=== PATIENT | female | born 1950 | race African-American/Black ===

== ENCOUNTER 2016-08-06 10:31 | Emergency (ER) | payer OTHER, MEDICAID ==
[~2016-08-06] VITALS: Ht 162.6 cm; Wt 71.2 kg
[~2016-08-06 10:31] MED LIST: ALBU1AER4 IN; ALBUAER3 IN; AMLO5TAB2 PO; FEXO-39 PO; HYDR25TA4 PO; LEVO-28 PO; METF-312 PO
[2016-08-06 10:40] VITALS: BP 135/66
[2016-08-06] MEDS ORDERED: KETOROLAC TROMETH 30 MG/ML 1ML VIAL IM ONE (11:15)
== END 2016-08-06 11:27 | disposition home or self-care (01) ==
LOC: ER 10:31
DX: M19.032 Primary osteoarthritis, left wrist (principal); M19.031 Primary osteoarthritis, right wrist; J45.909 Unspecified asthma, uncomplicated; J44.9 Chronic obstructive pulmonary disease, unspecified; E11.9 Type 2 diabetes mellitus without complications; I10 Essential (primary) hypertension; Z98.51 Tubal ligation status; Z90.710 Acquired absence of both cervix and uterus
CPT/HCPCS: 96372; 99283; J1885

== ENCOUNTER 2016-09-26 11:23 | Inpatient (IN) | payer OTHER, MEDICAID ==
[~2016-09-26] VITALS: Ht 162.6 cm; Wt 75.3 kg
[2016-09-26] MEDS: SODIUM CHLORIDE 0.9% 1,000 ML IV SCH (00:15)
[~2016-09-26 11:23] MED LIST changes: -LEVO-28 PO
[2016-09-26 12:03] LABS: Basophils # (auto) 0 uL; Basophils % (auto) 0.1 % (0.0-2.0); Eosinophils # (auto) 0 uL; Eosinophils % (auto) 0.4 % (0.0-7.0); Hemoglobin 16.4 g/dL (12.2-16.2); Lymphocytes # (auto) 1.2 uL; Lymphocytes % (auto) 13.1 % (10.0-50.0); Mean Corpuscular Hemoglobin 30.5 pg (28.0-32.0); Mean Corpuscular Hgb Conc. 32.2 g/dL (32.0-36.0); Mean Corpuscular Volume 94.5 fL (80.0-100.0); Mean Platelet Volume 8.5 fL (7.4-10.4); Monocytes # (auto) 0.2 uL; Monocytes % (auto) 2.1 % (0.0-12.0); Neutrophils # (auto) 7.6 uL; Neutrophils % (auto) 84.3 % (37.0-80.0); Platelet Count (auto) 247 10^3/uL (140-450); Red Cell Distribution Width 18.2 % (11.6-16.0)
[2016-09-26] MEDS ORDERED: IPRATROPIUM BROM 0.5 MG/2.5ML INH SOL NEB ONE ×2 (12:15→22:30)
[2016-09-26] MEDS ORDERED: ALBUTEROL SULF 2.5 MG/0.5ML(0.5%) NEB SOLN NEB ONE ×2 (12:15→22:30)
[2016-09-26 12:17] LABS: Albumin 3.3 g/dL (3.4-5.0); Alkaline Phosphatase 86 U/L (45-117); Anion Gap 6 (5-15); Aspartate Aminotransferase 8 U/L (15-37); BUN/Creatinine Ratio 14.3; Bilirubin, Total 0.8 mg/dL (0.2-1.0); Blood Urea Nitrogen 12 mg/dL (7-18); Calcium 8.6 mg/dL (8.5-10.1); Carbon Dioxide 29 mmol/L (21-32); Chloride 106 mmol/L (98-107); GFR African American 87 mL/min; GFR Non-African American 72 mL/min; Glucose 109 mg/dL (74-106); Magnesium 2.5 mg/dL (1.6-2.6); Sodium 141 mmol/L (136-145); Total Protein 7.1 g/dL (6.4-8.2)
[2016-09-26] MEDS ORDERED: methylPREDNISolone SOD SUCC 125 MG/2 ML VL IV ONE (12:30)
[2016-09-26] MEDS ORDERED: cefTRIAXone 1GM/50ML D5W 50 ML IV ONE (12:30)
[2016-09-26 13:31] LABS: B-Type Natriuretic Peptide 187.7 pg/mL (0-100); Temperature: 23.5 C (20.0-25.0)
[2016-09-26] MEDS ORDERED: IOHEXOL 350 MG/ML 100ML IJ ONE (14:25)
[2016-09-26] MEDS ORDERED: ENOXAPARIN SOD 80 MG/0.8ML SYRINGE SC ONE (14:30)
[2016-09-26 15:30] LABS: Urine Bilirubin Negative (Negative); Urine Blood Negative /uL (Negative); Urine Color Yellow (Yellow); Urine Glucose Normal (Normal); Urine Hyaline Cast FEW /lpf (0 - 2); Urine Ketone Negative (Negative); Urine Mucus FEW (None Seen); Urine Nitrite Negative (Negative); Urine RBC 13 /hpf (0 - 4); Urine Squamous Epithelial Cell FEW /hpf (<5)
[2016-09-26] MEDS ORDERED: ONDANSETRON HCL 4 MG/2 ML VIAL IV PRN (23:00)
[2016-09-26] MEDS ORDERED: DOCUSATE SOD 100 MG CAP PO PRN (23:00)
[2016-09-26] MEDS ORDERED: ACETAMINOPHEN 325 MG TAB PO PRN (23:00)
[2016-09-27] VITALS (8 sets, daily range): BP systolic 124–147; BP diastolic 65–99
[2016-09-27] MEDS: HYDROcodone-ACET 5/325MG TAB PO PRN ×2 (00:04→17:00)
[2016-09-27] MEDS: methylPREDNISolone SOD SUCC 40 MG/ML VL IV SCH ×5 (00:05→23:41)
[2016-09-27] MEDS: TEMAZEPAM 15 MG CAP PO PRN ×2 (00:42→21:14)
[2016-09-27] MEDS: IPRATROPIUM BROM 0.5 MG/2.5ML INH SOL NEB SCH ×6 (02:00→22:50)
[2016-09-27] MEDS ORDERED: ALBUTEROL SULF 2.5 MG/0.5ML(0.5%) NEB SOLN NEB ONE (02:00)
[2016-09-27] MEDS: SODIUM CHLOR 0.9% PF (SALINE LOCK) 10ML VIAL IV SCH ×3 (04:46→21:15)
[2016-09-27 06:07] LABS: Basophils # (auto) 0 uL; Eosinophils # (auto) 0 uL; Hematocrit 51.7 % (36.0-46.0); Hemoglobin 16.3 g/dL (12.2-16.2); Lymphocytes # (auto) 0.5 uL; Lymphocytes % (auto) 8.3 % (10.0-50.0); Mean Corpuscular Hemoglobin 30.3 pg (28.0-32.0); Mean Corpuscular Hgb Conc. 31.6 g/dL (32.0-36.0); Mean Platelet Volume 8.6 fL (7.4-10.4); Monocytes # (auto) 0.1 uL; Monocytes % (auto) 1.3 % (0.0-12.0); Neutrophils # (auto) 5.1 uL; Neutrophils % (auto) 90.4 % (37.0-80.0); Platelet Count (auto) 247 10^3/uL (140-450); Red Cell Distribution Width 17.5 % (11.6-16.0); SUSPECT VIEW TRANSMISSION; White Blood Cell 5.7 10^3/uL (4.4-10.8)
[2016-09-27 06:39] LABS: Albumin 3.2 g/dL (3.4-5.0); BUN/Creatinine Ratio 15.4; Bilirubin, Total 0.7 mg/dL (0.2-1.0); Calcium 8.9 mg/dL (8.5-10.1); Potassium 4.5 mmol/L (3.5-5.1); Total Protein 7.1 g/dL (6.4-8.2)
[2016-09-27] MEDS: FAMOTIDINE 20 MG TAB PO SCH ×2 (09:40→21:14)
[2016-09-27] MEDS ORDERED: POTASSIUM CHL 10 Meq TABLET PO ONE (11:30)
[2016-09-27] MEDS ORDERED: cefTRIAXone 1GM/50ML D5W 50 ML IV ONE (11:30)
[2016-09-27] MEDS ORDERED: FUROSEMIDE 40 MG/4 ML VIAL IV ONE (11:30)
[2016-09-27] MEDS ORDERED: amLODIPine BESYLATE 5 MG TAB PO ONE (11:45)
[2016-09-27] MEDS ORDERED: HCTZ 25 MG TAB PO ONE (11:45)
[2016-09-27] MEDS ORDERED: FEXOFENADINE HCL 60 MG TAB PO ONE (11:45)
[2016-09-27] MEDS: Boost Glucose Control 8 Ounces PO SCH ×2 (12:16→20:37)
[2016-09-27] MEDS: ALBUTEROL SULF 2.5 MG/0.5ML(0.5%) NEB SOLN NEB SCH ×3 (15:00→22:50)
[2016-09-27] MEDS: SODIUM CHLORIDE 0.9% 1,000 ML IV SCH (15:40)
[2016-09-27] MEDS: FEXOFENADINE HCL 60 MG TAB PO SCH (21:14)
[2016-09-28] MEDS: IPRATROPIUM BROM 0.5 MG/2.5ML INH SOL NEB SCH ×6 (02:12→22:04)
[2016-09-28] MEDS: ALBUTEROL SULF 2.5 MG/0.5ML(0.5%) NEB SOLN NEB SCH ×6 (02:12→22:04)
[2016-09-28] MEDS: HYDROcodone-ACET 5/325MG TAB PO PRN (04:03)
[2016-09-28] MEDS: methylPREDNISolone SOD SUCC 40 MG/ML VL IV SCH ×3 (05:07→18:05)
[2016-09-28] MEDS: SODIUM CHLOR 0.9% PF (SALINE LOCK) 10ML VIAL IV SCH ×3 (05:08→21:26)
[2016-09-28 05:30] LABS: Basophils # (auto) 0 uL; Eosinophils # (auto) 0 uL; Eosinophils % (auto) 0.1 % (0.0-7.0); Hematocrit 50.4 % (36.0-46.0); Lymphocytes # (auto) 0.4 uL; Lymphocytes % (auto) 5.4 % (10.0-50.0); Mean Corpuscular Hemoglobin 30.4 pg (28.0-32.0); Mean Corpuscular Hgb Conc. 31.8 g/dL (32.0-36.0); Mean Corpuscular Volume 95.5 fL (80.0-100.0); Mean Platelet Volume 8.4 fL (7.4-10.4); Monocytes # (auto) 0.4 uL; Neutrophils # (auto) 6.4 uL; Neutrophils % (auto) 88.5 % (37.0-80.0); Platelet Count (auto) 257 10^3/uL (140-450); Red Cell Distribution Width 17.2 % (11.6-16.0); White Blood Cell 7.2 10^3/uL (4.4-10.8)
[2016-09-28 05:41] LABS: Albumin 3.2 g/dL (3.4-5.0); Calcium 8.8 mg/dL (8.5-10.1); Potassium 4.7 mmol/L (3.5-5.1)
[2016-09-28 05:42] VITALS: BP 121/74
[2016-09-28 05:44] LABS: BUN/Creatinine Ratio 20.4
[2016-09-28 05:47] LABS: Bilirubin, Total 0.5 mg/dL (0.2-1.0); Total Protein 6.4 g/dL (6.4-8.2)
[2016-09-28] MEDS: Boost Glucose Control 8 Ounces PO SCH ×3 (08:00→18:07)
[2016-09-28] MEDS: SODIUM CHLORIDE 0.9% 1,000 ML IV SCH (08:20)
[2016-09-28 09:23] VITALS: BP 147/76
[2016-09-28] MEDS: cefTRIAXone 1GM/50ML D5W 50 ML IV SCH (09:48)
[2016-09-28] MEDS: FUROSEMIDE 40 MG/4 ML VIAL IV SCH (09:49)
[2016-09-28] MEDS: POTASSIUM CHL 10 Meq TABLET PO SCH (09:50)
[2016-09-28] MEDS: FAMOTIDINE 20 MG TAB PO SCH ×2 (09:50→21:26)
[2016-09-28] MEDS: HCTZ 25 MG TAB PO SCH (09:50)
[2016-09-28] MEDS: FEXOFENADINE HCL 60 MG TAB PO SCH ×2 (09:51→21:26)
[2016-09-28] MEDS: amLODIPine BESYLATE 5 MG TAB PO SCH (09:51)
[2016-09-28 12:50] VITALS: BP 161/73
[2016-09-28 17:37] VITALS: BP 137/75
[2016-09-28] MEDS: PROMETHAZINE-DM 5 ML ORAL SYRUP GT PRN (18:06)
[2016-09-28] MEDS: TEMAZEPAM 15 MG CAP PO PRN (21:26)
[2016-09-28 22:00] VITALS: BP 134/70
[2016-09-29] MEDS: methylPREDNISolone SOD SUCC 40 MG/ML VL IV SCH ×5 (00:16→23:41)
[2016-09-29] MEDS: SODIUM CHLORIDE 0.9% 1,000 ML IV SCH ×2 (00:55→17:40)
[2016-09-29] MEDS: ALBUTEROL SULF 2.5 MG/0.5ML(0.5%) NEB SOLN NEB SCH ×6 (02:38→22:41)
[2016-09-29] MEDS: IPRATROPIUM BROM 0.5 MG/2.5ML INH SOL NEB SCH ×6 (02:38→22:41)
[2016-09-29] MEDS: SODIUM CHLOR 0.9% PF (SALINE LOCK) 10ML VIAL IV SCH ×3 (05:04→22:00)
[2016-09-29 05:30] VITALS: BP 134/84
[2016-09-29 06:48] LABS: Basophils # (auto) 0 uL; Basophils % (auto) 0.1 % (0.0-2.0); DEFINITIVE VIEW TRANSMISSION; Eosinophils # (auto) 0 uL; Hematocrit 54.5 % (36.0-46.0); Hemoglobin 17.2 g/dL (12.2-16.2); Lymphocytes # (auto) 0.5 uL; Lymphocytes % (auto) 5.3 % (10.0-50.0); Mean Corpuscular Hemoglobin 30.1 pg (28.0-32.0); Mean Corpuscular Hgb Conc. 31.5 g/dL (32.0-36.0); Mean Corpuscular Volume 95.6 fL (80.0-100.0); Mean Platelet Volume 8.6 fL (7.4-10.4); Monocytes # (auto) 0.5 uL; Monocytes % (auto) 4.7 % (0.0-12.0); Neutrophils # (auto) 9.3 uL; Neutrophils % (auto) 89.9 % (37.0-80.0); Platelet Count (auto) 268 10^3/uL (140-450); Red Cell Distribution Width 17.3 % (11.6-16.0); SUSPECT VIEW TRANSMISSION; White Blood Cell 10.3 10^3/uL (4.4-10.8)
[2016-09-29 07:10] LABS: Potassium 4.3 mmol/L (3.5-5.1)
[2016-09-29 07:13] LABS: Albumin 3.5 g/dL (3.4-5.0); BUN/Creatinine Ratio 25.3; Calcium 9.3 mg/dL (8.5-10.1)
[2016-09-29 07:17] LABS: Bilirubin, Total 0.7 mg/dL (0.2-1.0); Total Protein 6.9 g/dL (6.4-8.2)
[2016-09-29] MEDS: Boost Glucose Control 8 Ounces PO SCH ×3 (08:08→18:27)
[2016-09-29 09:04] VITALS: BP 133/77
[2016-09-29] MEDS: POTASSIUM CHL 10 Meq TABLET PO SCH (09:49)
[2016-09-29] MEDS: cefTRIAXone 1GM/50ML D5W 50 ML IV SCH (09:49)
[2016-09-29] MEDS: FUROSEMIDE 40 MG/4 ML VIAL IV SCH (09:49)
[2016-09-29] MEDS: FEXOFENADINE HCL 60 MG TAB PO SCH ×2 (09:49→21:12)
[2016-09-29] MEDS: HCTZ 25 MG TAB PO SCH (09:49)
[2016-09-29] MEDS: FAMOTIDINE 20 MG TAB PO SCH ×2 (09:50→21:12)
[2016-09-29] MEDS: amLODIPine BESYLATE 5 MG TAB PO SCH (09:50)
[2016-09-29 12:37] VITALS: BP 147/71
[2016-09-29 16:47] VITALS: BP 120/71
[2016-09-29] MEDS: TEMAZEPAM 15 MG CAP PO PRN (21:12)
[2016-09-29 22:00] VITALS: BP 143/81
[2016-09-30 00:25] VITALS: BP 120/71
[2016-09-30] MEDS: ALBUTEROL SULF 2.5 MG/0.5ML(0.5%) NEB SOLN NEB SCH ×4 (02:22→14:05)
[2016-09-30] MEDS: IPRATROPIUM BROM 0.5 MG/2.5ML INH SOL NEB SCH ×4 (02:22→14:05)
[2016-09-30 05:30] VITALS: BP 140/75
[2016-09-30] MEDS: SODIUM CHLOR 0.9% PF (SALINE LOCK) 10ML VIAL IV SCH ×2 (06:11→14:27)
[2016-09-30] MEDS: methylPREDNISolone SOD SUCC 40 MG/ML VL IV SCH ×2 (06:12→12:00)
[2016-09-30] MEDS: PROMETHAZINE-DM 5 ML ORAL SYRUP GT PRN (06:20)
[2016-09-30 08:00] VITALS: BP 140/75
[2016-09-30 09:00] VITALS: BP 141/75
[2016-09-30] MEDS: Boost Glucose Control 8 Ounces PO SCH ×2 (09:23→12:00)
[2016-09-30] MEDS: cefTRIAXone 1GM/50ML D5W 50 ML IV SCH (09:24)
[2016-09-30] MEDS: FAMOTIDINE 20 MG TAB PO SCH (09:25)
[2016-09-30] MEDS: HCTZ 25 MG TAB PO SCH (09:25)
[2016-09-30] MEDS: amLODIPine BESYLATE 5 MG TAB PO SCH (09:25)
[2016-09-30] MEDS: FEXOFENADINE HCL 60 MG TAB PO SCH (09:26)
[2016-09-30] MEDS: SODIUM CHLORIDE 0.9% 1,000 ML IV SCH (09:29)
[2016-09-30] MEDS: POTASSIUM CHL 10 Meq TABLET PO SCH (09:29)
[2016-09-30] MEDS: FUROSEMIDE 40 MG/4 ML VIAL IV SCH (09:29)
[2016-09-30 11:50] VITALS: BP 141/75
== END 2016-09-30 14:40 | disposition home or self-care (01) | DRG 291 ==
LOC: ER 11:23 → TELE 11:24 → TELE-WESTW 09-27 00:12
PROVIDERS: ADMIT Emergency Medicine; ATTEND Internal Medicine
DX: I50.33 Acute on chronic diastolic (congestive) heart failure (principal); J96.00 Acute respiratory failure, unspecified whether with hypoxia or hypercapnia; J44.1 Chronic obstructive pulmonary disease with (acute) exacerbation; J45.901 Unspecified asthma with (acute) exacerbation; E44.1 Mild protein-calorie malnutrition; J44.0 Chronic obstructive pulmonary disease with (acute) lower respiratory infection; I13.10 Hypertensive heart and chronic kidney disease without heart failure, with stage 1 through stage 4 chronic kidney disease, or unspecified chronic kidney disease; J20.9 Acute bronchitis, unspecified; E11.21 Type 2 diabetes mellitus with diabetic nephropathy; N18.2 Chronic kidney disease, stage 2 (mild)
CPT/HCPCS: 36415; 36600; 71010; 71275; 80053; 81001; 82805; 83036; 83605; 83735; 83880; 84484; 85025; 85379; 87040; 87081; 93005; 93306; 93970; 94640; 96365; 96372; 96375; 99291; J0696

== ENCOUNTER → 2018-09-06 | Outpatient (CLI) | payer OTHER, MEDICAID ==
[~2018-09-06] MED LIST changes: -ALBU1AER4 IN; +AMLO5TAB13 PO; -AMLO5TAB2 PO; -METF-312 PO; +METF-370 PO
== END | disposition home or self-care (01) ==
LOC: Rad HDHVI 07:47
PROVIDERS: ATTEND Internal Medicine Cardiovascular Disease
DX: I08.2 Rheumatic disorders of both aortic and tricuspid valves (principal); I65.21 Occlusion and stenosis of right carotid artery; I42.0 Dilated cardiomyopathy; I27.20 Pulmonary hypertension, unspecified
CPT/HCPCS: 93306; 93880

== ENCOUNTER 2019-06-05 15:07 | Emergency (ER) | payer OTHER, MEDICAID ==
[~2019-06-05] VITALS: Ht 162.6 cm; Wt 59.0 kg
[~2019-06-05 15:07] MED LIST changes: -AMLO5TAB13 PO; +AMLO5TAB15 PO
[2019-06-05 16:08] VITALS: BP 110/76
[2019-06-05] MEDS ORDERED: methylPREDNISolone SOD SUCC 125 MG/2 ML VL IV ONE (16:30)
[2019-06-05] MEDS ORDERED: IPRATROPIUM BROM 0.5 MG/2.5ML INH SOL NEB ONE (16:30)
[2019-06-05] MEDS ORDERED: ALBUTEROL SULF 2.5 MG/0.5ML(0.5%) NEB SOLN NEB ONE (16:30)
[2019-06-05 17:20] LABS: Basophils # (auto) 0.1 uL; Basophils % (auto) 1.5 % (0.0-2.0); Eosinophils # (auto) 0 uL; Eosinophils % (auto) 0.8 % (0.0-7.0); Hematocrit 50.7 % (36.0-46.0); Hemoglobin 16.5 g/dL (12.2-16.2); Lymphocytes # (auto) 1.2 uL; Lymphocytes % (auto) 23.8 % (10.0-50.0); Mean Corpuscular Hemoglobin 29.8 pg (28.0-32.0); Mean Corpuscular Hgb Conc. 32.6 g/dL (32.0-36.0); Mean Corpuscular Volume 91.6 fL (80.0-100.0); Monocytes # (auto) 0.7 uL; Neutrophils # (auto) 3.1 uL; Neutrophils % (auto) 60.9 % (37.0-80.0); Nucleated Red Blood Cells % 0.2 %; Platelet Count (auto) 210 10^3/uL (140-450); Red Blood Cells 5.54 10^6/uL (4.0-5.20); Red Cell Distribution Width 16.3 % (11.8-14.3)
[2019-06-05 17:36] LABS: INR 1.15 (0.9-1.15); Partial Thromboplastin Time 27.1 sec (23.64-32.05)
[2019-06-05 17:38] LABS: Albumin 3.1 g/dL (3.4-5.0); Anion Gap 3 (5-15); BUN/Creatinine Ratio 29.3; Blood Urea Nitrogen 24 mg/dL (7-18); Calcium 8.8 mg/dL (8.5-10.1); Carbon Dioxide 34 mmol/L (21-32); Chloride 102 mmol/L (98-107); GFR African American 88 mL/min; GFR Non-African American 73 mL/min; Glucose 71 mg/dL (74-106); Potassium 3.9 mmol/L (3.5-5.1); Sodium 139 mmol/L (136-145)
[2019-06-05 17:44] LABS: Alanine Aminotransferase 35 U/L (13-56); Alkaline Phosphatase 130 U/L (45-117); Aspartate Aminotransferase 13 U/L (15-37); Bilirubin, Total 1.6 mg/dL (0.2-1.0); Total Protein 6.7 g/dL (6.4-8.2)
[2019-06-05] MEDS ORDERED: FUROSEMIDE 40 MG/4 ML VIAL IV ONE (19:45)
== END 2019-06-06 02:22 | disposition left against medical advice (07) ==
LOC: EDSEX 15:07 → EDBD 15:07 → ER 15:18
DX: R06.03 Acute respiratory distress (principal); I11.0 Hypertensive heart disease with heart failure; I50.9 Heart failure, unspecified; E11.9 Type 2 diabetes mellitus without complications; M19.90 Unspecified osteoarthritis, unspecified site
CPT/HCPCS: 36415; 80053; 83880; 84484; 85025; 85610; 85730; 93005; 94640; 99284; J7611; J7644

== ENCOUNTER 2019-07-16 09:05 | Inpatient (IN) | payer OTHER, MEDICAID ==
[~2019-07-16] VITALS: Ht 162.6 cm; Wt 70.3 kg
[2019-07-16 09:30] VITALS: BP 123/73
[2019-07-16 10:26] LABS: Urine Bacteria FEW /hpf (None Seen); Urine Blood Negative /uL (Negative); Urine Hyaline Cast FEW /lpf (0 - 2); Urine Mucus FEW (None Seen); Urine Specific Gravity 1.027 (1.001-1.035); Urine WBC 22 /hpf (0 - 5)
[2019-07-16 10:35] LABS: INR 1.11 (0.9-1.15); Partial Thromboplastin Time 27.5 sec (23.64-32.05)
[2019-07-16 10:36] LABS: Albumin 3.2 g/dL (3.4-5.0); Anion Gap 5 (5-15); Blood Urea Nitrogen 14 mg/dL (7-18); Calcium 8.7 mg/dL (8.5-10.1); Carbon Dioxide 28 mmol/L (21-32); Chloride 111 mmol/L (98-107); Glucose 82 mg/dL (74-106); Sodium 144 mmol/L (136-145)
[2019-07-16 10:42] LABS: Alanine Aminotransferase 16 U/L (13-56); Alkaline Phosphatase 102 U/L (45-117); Aspartate Aminotransferase 9 U/L (15-37); BUN/Creatinine Ratio 17.9; Bilirubin, Total 1.4 mg/dL (0.2-1.0); GFR African American 94 mL/min; GFR Non-African American 77 mL/min; Total Protein 6.5 g/dL (6.4-8.2)
[2019-07-16 10:44] LABS: Basophils # (auto) 0 uL; Basophils % (auto) 1.2 % (0.0-2.0); Eosinophils # (auto) 0.1 uL; Eosinophils % (auto) 1.5 % (0.0-7.0); Hematocrit 47.9 % (36.0-46.0); Hemoglobin 15.2 g/dL (12.2-16.2); Lymphocytes # (auto) 0.8 uL; Lymphocytes % (auto) 23.2 % (10.0-50.0); Mean Corpuscular Hemoglobin 29.2 pg (28.0-32.0); Mean Corpuscular Hgb Conc. 31.8 g/dL (32.0-36.0); Mean Corpuscular Volume 91.7 fL (80.0-100.0); Monocytes # (auto) 0.5 uL; Neutrophils # (auto) 2.2 uL; Neutrophils % (auto) 61.1 % (37.0-80.0); Nucleated Red Blood Cells % 0.1 %; Platelet Count (auto) 149 10^3/uL (140-450); Red Blood Cells 5.22 10^6/uL (4.0-5.20); Red Cell Distribution Width 19.4 % (11.8-14.3); White Blood Cell 3.7 10^3/uL (4.4-10.8)
[2019-07-16] MEDS ORDERED: ASPirin-EC 81 mg tab PO ONE (13:00)
[2019-07-16] MEDS ORDERED: cefTRIAXone 1GM/50ML D5W 50 ML IV ONE (13:00)
[2019-07-16] MEDS ORDERED: FUROSEMIDE 40 MG/4 ML VIAL IV ONE (14:00)
[2019-07-16] MEDS ORDERED: MORPHINE SULF INJ 2 MG/ML SYRINGE 1ML IV PRN (14:15)
[2019-07-16] MEDS ORDERED: NITROGLYCERIN 0.4 MG SL TAB SL PRN (14:15)
[2019-07-16] MEDS ORDERED: ALBUTEROL SULF 2.5 MG/0.5ML(0.5%) NEB SOLN NEB PRN (14:15)
[2019-07-16 14:21] VITALS: BP 118/45
[2019-07-16] MEDS ORDERED: hydrALAZINE HCL 20 MG/ML VL IV PRN (14:30)
--- NOTE | 2019-07-16 16:25 | NUR ---
Telemetry admit from ER EDUARDO MERCEDES admitted to Telemetry unit after SBAR received. Patient oriented to Maricarmen Iraheta, primary RN, unit, room, bed, and unit policies regarding patient care and visiting hours. Patient now on continuous telemetry monitoring, tele box # [id number] and telemetry reading on arrival to unit is SINUS RHYTHM with PVC. Patient placed on bedside oxygen at 3L n/c. VSS. Patient weighed by bedscale and encouraged to call if they need something. All questions and concerns addressed, patient verbalized understanding. No distress or sob noted. Will cont to monitor
--- NOTE | 2019-07-16 19:16 | NUR ---
Patient care endorsed endorsed care to Domingo rn. Patient sitting up in bed no acute distress noted. Call light within reach
[2019-07-16 19:30] VITALS: BP 123/73
--- NOTE | 2019-07-16 19:35 | NUR ---
Opening Shift Note Assumed care of patient, awake and alert & oriented x4. No S/S of distress/SOB. Bed low, locked, and call preston within reach. Instructed on POC and to call for assist PRN, will continue to monitor for changes Q1hr and PRN.
--- NOTE | 2019-07-16 20:00 | NUR ---
Respiratory note: AT BEDSIDE TO ASSESS PT. NO TX INDICATED AT THIS TIME. BS ARE DIMINISHED CLEAR T/O, POX 100% ON 3LPM. HR 90S. PT AWARE I CAN BE PAGED AT ANY TIME SHE FEELS SOB OR HAVING ANY CONCERN WITH HER BREATHING. RT NAME AND PAGER ASSIGNMENT WRITTEN ON PT ROOM BOARD WILL CONTINUE TO MONITOR.
--- NOTE | 2019-07-16 20:02 | NUR ---
Respiratory note: TITRATED FROM 3LPM TO 2LPM TONO, XOCHITL AN COMMUNICATED ON O2 CHANGE.
[2019-07-16] MEDS ORDERED: FUROSEMIDE 20 MG TAB PO ONE (21:00)
[2019-07-16] MEDS ORDERED: traMADol HCL 50 MG TAB PO PRN (21:00)
--- NOTE | 2019-07-16 21:00 | NUR ---
Called and poke to MD Segal, who is covering tonight for MD Borges. Patient ir reporting pain 8 out of 10 in her bilateral lower extremities related to the edema, which is 3+. MD made aware patient has not yet received Lasix but is scheduled to receive it in AM. MD made aware of current BUN, Creatinine, and potassium. Orders received: Lasix 20 mg PO once, Tramadol 50 mg PO q 6hrs PRN moderate pain.
[2019-07-16 21:28] VITALS: BP 113/73
[2019-07-17 04:59] VITALS: BP 114/70
--- NOTE | 2019-07-17 06:10 | NUR ---
Respiratory note: PRN MED NEB TX NOT INDICATED AT THIS TIME. HR 84, RR 14, SPO2 92% ON 2 L NC, BS CLEAR. PT INFORMED TO HIT CALL BUTTON IF FEELING SOB OR WHEEZING.
[2019-07-17 09:00] VITALS: BP 105/60
[2019-07-17] MEDS ORDERED: FUROSEMIDE 40 MG/4 ML VIAL IV SCH (10:00)
[2019-07-17] MEDS: cefTRIAXone 1GM/50ML D5W 50 ML IV SCH (10:32)
[2019-07-17 10:59] LABS: Basophils # (auto) 0.1 uL; Basophils % (auto) 1.7 % (0.0-2.0); Eosinophils # (auto) 0.1 uL; Eosinophils % (auto) 1.6 % (0.0-7.0); Hematocrit 45.3 % (36.0-46.0); Hemoglobin 14.7 g/dL (12.2-16.2); Lymphocytes # (auto) 1.4 uL; Lymphocytes % (auto) 30.5 % (10.0-50.0); Mean Corpuscular Hemoglobin 29.6 pg (28.0-32.0); Mean Corpuscular Hgb Conc. 32.4 g/dL (32.0-36.0); Mean Corpuscular Volume 91.4 fL (80.0-100.0); Monocytes # (auto) 0.6 uL; Monocytes % (auto) 12.5 % (0.0-12.0); Neutrophils # (auto) 2.4 uL; Neutrophils % (auto) 53.7 % (37.0-80.0); Nucleated Red Blood Cells % 0.1 %; Platelet Count (auto) 146 10^3/uL (140-450); Red Blood Cells 4.95 10^6/uL (4.0-5.20); Red Cell Distribution Width 18.9 % (11.8-14.3); White Blood Cell 4.5 10^3/uL (4.4-10.8)
[2019-07-17 11:24] LABS: BUN/Creatinine Ratio 19.2; Calcium 8.8 mg/dL (8.5-10.1); Potassium 4.3 mmol/L (3.5-5.1)
[2019-07-17 13:00] VITALS: BP 122/65
[2019-07-17 16:52] VITALS: BP 109/67
--- NOTE | 2019-07-17 18:41 | NUR ---
Respiratory note: ASSESSED PT FOR PRN MED NEB TX. PT IS CURRENTLY ON 2 L/M NC: HR 91, RR 16, SPO2 96%. PT SHOWS NO S/S OF SOB OR RESPIRATORY DISTRESS. MED NEB TX NOT INDICATED AT THIS TIME. PT AWARE TO HAVE RT PAGED IF SOB OCCURS. WILL CONTINUE TO MONITOR.
--- NOTE | 2019-07-17 21:05 | NUR ---
Opening Shift Note Assumed care of patient, awake, alert and oriented X 4. No S/S of distress/SOB or pain. Bed is in lowest position, locked, with 2 side rails up, and call preston is within reach. Instructed on POC and to call for assist PRN, will continue to monitor for changes Q1hr and PRN.
[2019-07-17 22:00] VITALS: BP 126/75
[2019-07-17] MEDS: FUROSEMIDE 40 MG/4 ML VIAL IV SCH (22:28)
[2019-07-18 05:00] VITALS: BP 118/70
--- NOTE | 2019-07-18 07:05 | NUR ---
Respiratory note: HR 123, RR 14, SPO2 100% ON RA, BS CLEAR. PRN MED NEB TX NOT INDICATED AT THIS TIME. NO SIGNS OR SYMPTOMS OF RESPIRATORY DISTRESS NOTED. WILL CONTINUE TO MONITOR ORDERED
--- NOTE | 2019-07-18 08:12 | NUR ---
paged md weathers to clarify if pt has clearance, in report recieved that wants one more day of iv diuretics, md delacruz put in discharge order if cleared by sarahy
--- NOTE | 2019-07-18 08:40 | NUR ---
paged md weathers again awaiting call back
[2019-07-18 08:47] VITALS: BP 118/58
[2019-07-18] MEDS: FUROSEMIDE 40 MG/4 ML VIAL IV SCH ×2 (09:15→20:53)
[2019-07-18] MEDS: cefTRIAXone 1GM/50ML D5W 50 ML IV SCH (09:15)
--- NOTE | 2019-07-18 09:39 | NUR ---
updated pt that she has a discharge order, per patient "i dont have my keys i left them in the car and my son wont be able to give them to me till tomorrow"
[2019-07-18 09:42] LABS: Basophils # (auto) 0 uL; Basophils % (auto) 0.6 % (0.0-2.0); Eosinophils # (auto) 0.1 uL; Hematocrit 44.6 % (36.0-46.0); Hemoglobin 14.4 g/dL (12.2-16.2); Lymphocytes % (auto) 25.1 % (10.0-50.0); Mean Corpuscular Hemoglobin 29.3 pg (28.0-32.0); Mean Corpuscular Hgb Conc. 32.2 g/dL (32.0-36.0); Mean Corpuscular Volume 90.9 fL (80.0-100.0); Monocytes # (auto) 0.5 uL; Monocytes % (auto) 13.6 % (0.0-12.0); Neutrophils # (auto) 2.3 uL; Neutrophils % (auto) 58.7 % (37.0-80.0); Nucleated Red Blood Cells % 0.2 %; Platelet Count (auto) 135 10^3/uL (140-450); Red Cell Distribution Width 18.6 % (11.8-14.3); White Blood Cell 3.9 10^3/uL (4.4-10.8)
[2019-07-18 10:01] LABS: BUN/Creatinine Ratio 22.8; Calcium 8.8 mg/dL (8.5-10.1); Potassium 3.8 mmol/L (3.5-5.1)
--- NOTE | 2019-07-18 10:50 | NUR ---
paged md delacruz was directed to his personal cell phone
[2019-07-18 12:52] VITALS: BP 108/60
--- NOTE | 2019-07-18 20:52 | NUR ---
per pt she stated she is leaving tomorrow at 0700 and because she "[place], if i take the lasix tonight i wont make it there so dont give it to me so i can get some rest" risk and benefit explained but pt still refused
--- NOTE | 2019-07-18 21:43 | NUR ---
Respiratory note: HR 94, RR 16, SPO2 100% ON 2L NASAL CANNULA. BREATH SOUNDS ARE CLEAR. PRN MED NEB TX NOT INDICATED AT THIS TIME. NO SIGNS OR SYMPTOMS OF RESPIRATORY DISTRESS NOTED. WILL CONTINUE TO MONITOR ORDERED
--- NOTE | 2019-07-18 23:35 | NUR ---
ROUNDED ON PT PT SLEEPING NO PAIN NOTED NO RESPIRATORY DISTRESS NOTED
[2019-07-19 00:54] VITALS: BP 95/57
[2019-07-19 05:51] VITALS: BP 110/63
--- NOTE | 2019-07-19 06:45 | NUR ---
Discharge instructions given as ordered. Encourage to follow up with PMD as instructed. All questions and concerns addressed. Patient verbalized understanding. IV removed with catheter intact, pressure dressing applied. Telemetry unit returned to ICU. Patient taken to vehicle via wheelchair with all personal belongings, accompanied by staff and family member. No distress noted at time of departure.
== END 2019-07-19 06:55 | disposition home health service (06) | DRG 292 ==
LOC: ER 09:05 → TELE 09:06 → TELE-WESTW 16:19
PROVIDERS: ADMIT Internal Medicine; ATTEND Internal Medicine
DX: I11.0 Hypertensive heart disease with heart failure (principal); N39.0 Urinary tract infection, site not specified; I50.43 Acute on chronic combined systolic (congestive) and diastolic (congestive) heart failure; I42.9 Cardiomyopathy, unspecified; I07.1 Rheumatic tricuspid insufficiency; J44.9 Chronic obstructive pulmonary disease, unspecified; I27.29 Other secondary pulmonary hypertension; I50.82 Biventricular heart failure; E11.8 Type 2 diabetes mellitus with unspecified complications; F32.9 Major depressive disorder, single episode, unspecified; M19.90 Unspecified osteoarthritis, unspecified site; Z82.49 Family history of ischemic heart disease and other diseases of the circulatory system; Z83.3 Family history of diabetes mellitus
CPT/HCPCS: 36415; 71045; 80048; 80053; 81001; 83880; 84484; 85025; 85610; 85730; 87040; 87086; 93005; 93306; 93970; 94640; 96365; G0378; J0696

== ENCOUNTER 2019-12-13 02:55 | Inpatient (IN) | payer MEDICARE, MEDICAID ==
[~2019-12-13] VITALS: Ht 162.6 cm; Wt 93.7 kg
[~2019-12-13 02:55] MED LIST changes: -AMLO5TAB15 PO; -FEXO-39 PO; -HYDR25TA4 PO
[2019-12-13 03:52] LABS: Hematocrit 41.5 % (36.0-46.0); Hemoglobin 12.7 g/dL (12.2-16.2); Mean Corpuscular Hgb Conc. 30.7 g/dL (32.0-36.0); Mean Corpuscular Volume 97.7 fL (80.0-100.0); Platelet Count (auto) 148 10^3/uL (140-450); Red Blood Cells 4.25 10^6/uL (4.0-5.20); Red Cell Distribution Width 17.7 % (11.8-14.3); White Blood Cell 9.4 10^3/uL (4.4-10.8)
[2019-12-13 03:56] LABS: Basophils % (manual) 0 (0.0-2.0); Blast Cells 0; Metamyelocytes % 0; Myelocytes % 0; Promyelocytes % 0; Reactive Lymphocytes 0
[2019-12-13 03:59] LABS: Calcium 7.9 mg/dL (8.5-10.1); INR 1.13 (0.9-1.15); Lactic Acid w/Reflex 6.4 mmol/L (0.4-2.0); Partial Thromboplastin Time 23.9 sec (23.64-32.05)
[2019-12-13 04:08] LABS: Albumin 3.2 g/dL (3.4-5.0); BUN/Creatinine Ratio 13.5; Bilirubin, Total 1.2 mg/dL (0.2-1.0); Magnesium 2.7 mg/dL (1.6-2.6); Total Protein 6.8 g/dL (6.4-8.2)
[2019-12-13 04:09] LABS: Potassium 5.6 mmol/L (3.5-5.1)
[2019-12-13] MEDS ORDERED: FUROSEMIDE 20 MG/2 ML VIAL IV ONE (04:15)
[2019-12-13 04:24] LABS: Band Neutrophils % (manual) 4; Eosinophils % (manual) 2 (0-7); Lymphocytes % (manual) 20 (10.0-50.0); Monocytes % (manual) 7 (0-12)
[2019-12-13] MEDS: ALBUTEROL SULF 2.5 MG/0.5ML(0.5%) NEB SOLN NEB SCH (06:30)
[2019-12-13] MEDS: IPRATROPIUM BROM 0.5 MG/2.5ML INH SOL NEB SCH (06:30)
[2019-12-13 07:30] VITALS: BP 100/58
[2019-12-13 09:33] LABS: Urine Bacteria FEW /hpf (None Seen); Urine Blood 2+ /uL (Negative); Urine Hyaline Cast FEW /lpf (0 - 2); Urine Specific Gravity 1.008 (1.001-1.035); Urine WBC 2 /hpf (0 - 5)
[2019-12-13 09:42] LABS: Amphetamine Screen, Urine NEGATIVE (NEGATIVE); Barbiturate Scree,Urine NEGATIVE (NEGATIVE); Benzodiazephine Screen, Urine NEGATIVE (NEGATIVE); Cannabinoid Screen, Urine NEGATIVE (NEGATIVE); Cocaine Screen, Urine NEGATIVE (NEGATIVE); Opiate Scree,Urine NEGATIVE (NEGATIVE); Phencyclidine Screen, Urine NEGATIVE (NEGATIVE)
--- NOTE | 2019-12-13 10:52 | NUR ---
Respiratory note: TOOK PT OFF BIPAP AND PLACED ON 12L OXYMIZER. PT TOLERATING WELL. POX AT 91%. RN AWARE OF CHANGES.
[2019-12-13] MEDS ORDERED: HEPARIN DRIP/D5W 100UNITS/ML 250 ML IV SCH ×2 (11:06→14:30)
[2019-12-13] MEDS ORDERED: CARV3.1240 PO (11:08)
[2019-12-13] MEDS ORDERED: MORPHINE SULF INJ 2 MG/ML SYRINGE 1ML IV PRN (11:15)
[2019-12-13] MEDS ORDERED: NITROGLYCERIN 0.4 MG SL TAB SL PRN (11:15)
[2019-12-13] MEDS ORDERED: ACETAMINOPHEN 325 MG TAB PO PRN (11:15)
[2019-12-13] MEDS ORDERED: HEPARIN SODIUM (PORCINE) 5000 UNITS/ML 1ML VIAL IV ONE ×3 (11:15→14:00)
[2019-12-13] MEDS ORDERED: DOCUSATE SOD 100 MG CAP PO PRN (11:15)
[2019-12-13] MEDS: ALBUTEROL SULF 2.5 MG/0.5ML(0.5%) NEB SOLN NEB PRN (11:20)
[2019-12-13] MEDS: ONDANSETRON HCL 4 MG/2 ML VIAL IV PRN ×2 (11:28→18:46)
[2019-12-13] MEDS: MORPHINE SULF INJ 2 MG/ML SYRINGE 1ML IV PRN ×2 (11:28→18:46)
--- NOTE | 2019-12-13 11:39 | NUR ---
Respiratory note: PT RECEIVED ALBUTEROL 5MG [place] TX. DR. MUNIZ TITRATED FIO2 TO 6L ON THE OXYMIZER. PT TOLERATING WELL POX AT 96%. RN AWARE OF CHANGES.
[2019-12-13 11:40] LABS: Basophils # (auto) 0 10 ^3/uL (0-0.2); Basophils % (auto) 0.3 % (0.0-2.0); Eosinophils # (auto) 0 10 ^3/uL (0-0.8); Eosinophils % (auto) 0.3 % (0.0-7.0); Hematocrit 39.3 % (36.0-46.0); Hemoglobin 12.5 g/dL (12.2-16.2); Lymphocytes # (auto) 0.9 10 ^3/uL (0.4-5.4); Lymphocytes % (auto) 8.4 % (10.0-50.0); Mean Corpuscular Hgb Conc. 31.7 g/dL (32.0-36.0); Mean Corpuscular Volume 94.7 fL (80.0-100.0); Monocytes # (auto) 0.8 10 ^3/uL (0-1.3); Monocytes % (auto) 7.5 % (0.0-12.0); Neutrophils # (auto) 8.7 10 ^3/uL (1.6-8.6); Neutrophils % (auto) 83.5 % (37.0-80.0); Nucleated Red Blood Cells % 0.1 %; Platelet Count (auto) 160 10^3/uL (140-450); Red Blood Cells 4.14 10^6/uL (4.0-5.20); Red Cell Distribution Width 17.2 % (11.8-14.3); White Blood Cell 10.4 10^3/uL (4.4-10.8)
[2019-12-13 11:56] LABS: BUN/Creatinine Ratio 20.4; Calcium 8.4 mg/dL (8.5-10.1); INR 1.13 (0.9-1.15); Potassium 4.3 mmol/L (3.5-5.1)
[2019-12-13] MEDS: cefTRIAXone 1GM/50ML D5W 50 ML IV SCH (12:02)
[2019-12-13] MEDS: FUROSEMIDE 40 MG/4 ML VIAL IV SCH ×2 (12:02→23:00)
[2019-12-13] MEDS: HYDROcodone-ACET 5/325MG TAB PO PRN (14:30)
[2019-12-13 14:40] LABS: Basophils # (auto) 0.1 10 ^3/uL (0-0.2); Basophils % (auto) 0.6 % (0.0-2.0); Eosinophils # (auto) 0 10 ^3/uL (0-0.8); Eosinophils % (auto) 0.5 % (0.0-7.0); Hemoglobin 12.5 g/dL (12.2-16.2); Lymphocytes # (auto) 0.9 10 ^3/uL (0.4-5.4); Lymphocytes % (auto) 9.4 % (10.0-50.0); Mean Corpuscular Hemoglobin 30.2 pg (28.0-32.0); Mean Corpuscular Volume 94.5 fL (80.0-100.0); Monocytes # (auto) 0.8 10 ^3/uL (0-1.3); Neutrophils # (auto) 7.8 10 ^3/uL (1.6-8.6); Neutrophils % (auto) 81.5 % (37.0-80.0); Nucleated Red Blood Cells % 0.2 %; Platelet Count (auto) 161 10^3/uL (140-450); Red Blood Cells 4.13 10^6/uL (4.0-5.20); White Blood Cell 9.6 10^3/uL (4.4-10.8)
[2019-12-13 14:47] VITALS: BP 116/75
[2019-12-13] MEDS ORDERED: metOLazone 5 MG TAB PO ONE (15:15)
[2019-12-13 16:15] LABS: INR 1.18 (0.9-1.15)
[2019-12-13 16:17] LABS: Partial Thromboplastin Time 125.3 sec (23.64-32.05)
[2019-12-13] MEDS ORDERED: GABA300C10 PO (17:24)
[2019-12-13] MEDS ORDERED: FURO40TA4 PO (17:24)
[2019-12-13] MEDS ORDERED: BUDE1AER4 IN (17:24)
[2019-12-13] MEDS ORDERED: BENZ100C97 PO (17:24)
[2019-12-13] MEDS ORDERED: POTA10TA32 PO (17:26)
[2019-12-13] MEDS ORDERED: ALBU0.084 NEB (17:28)
--- NOTE | 2019-12-13 18:54 | NUR ---
Respiratory note: ASSESSED PT FOR PRN MED NEB TX. PT IS CURRENTLY ON 6 L/M OXYMIZER: HR 86, RR 14, SPO2 97%. PT SHOWS NO S/S OF SOB OR RESPIRATORY DISTRESS. MED NEB TX NOT INDICATED AT THIS TIME. WILL CONTINUE TO MONITOR.
[2019-12-13] MEDS: methylPREDNISolone SOD SUCC 40 MG/ML VL IV SCH (22:15)
[2019-12-14] MEDS: MORPHINE SULF INJ 2 MG/ML SYRINGE 1ML IV PRN (00:24)
[2019-12-14 01:56] LABS: INR 1.15 (0.9-1.15); Partial Thromboplastin Time 40.1 sec (23.64-32.05)
[2019-12-14 06:03] LABS: Basophils # (auto) 0 10 ^3/uL (0-0.2); Basophils % (auto) 0.6 % (0.0-2.0); Eosinophils # (auto) 0 10 ^3/uL (0-0.8); Eosinophils % (auto) 0.1 % (0.0-7.0); Hematocrit 39.5 % (36.0-46.0); Hemoglobin 12.9 g/dL (12.2-16.2); Lymphocytes # (auto) 0.4 10 ^3/uL (0.4-5.4); Lymphocytes % (auto) 5.7 % (10.0-50.0); Mean Corpuscular Hemoglobin 30.6 pg (28.0-32.0); Mean Corpuscular Hgb Conc. 32.6 g/dL (32.0-36.0); Mean Corpuscular Volume 93.9 fL (80.0-100.0); Monocytes # (auto) 0.2 10 ^3/uL (0-1.3); Monocytes % (auto) 2.3 % (0.0-12.0); Neutrophils # (auto) 6.5 10 ^3/uL (1.6-8.6); Neutrophils % (auto) 91.3 % (37.0-80.0); Nucleated Red Blood Cells % 0.1 %; Platelet Count (auto) 143 10^3/uL (140-450); Red Blood Cells 4.21 10^6/uL (4.0-5.20); Red Cell Distribution Width 16.8 % (11.8-14.3); White Blood Cell 7.1 10^3/uL (4.4-10.8)
[2019-12-14 06:18] LABS: Potassium 4.4 mmol/L (3.5-5.1)
[2019-12-14 06:25] LABS: BUN/Creatinine Ratio 22.4; Calcium 9.1 mg/dL (8.5-10.1)
[2019-12-14] MEDS: ALBUTEROL SULF 2.5 MG/0.5ML(0.5%) NEB SOLN NEB SCH ×2 (06:30→14:25)
[2019-12-14] MEDS: IPRATROPIUM BROM 0.5 MG/2.5ML INH SOL NEB SCH ×2 (06:30→14:24)
--- NOTE | 2019-12-14 06:30 | NUR ---
Respiratory note: ASSESSED PT FOR PRN MED NEB TX. PT IS CURRENTLY ON 5 L/M OXYMIZER: HR 99, RR 14, SPO2 98%. PT SHOWS NO S/S OF SOB OR RESPIRATORY DISTRESS. MED NEB TX NOT INDICATED AT THIS TIME. WILL CONTINUE TO MONITOR.
[2019-12-14 08:57] LABS: INR 1.16 (0.9-1.15); Partial Thromboplastin Time 48.9 sec (23.64-32.05)
[2019-12-14] MEDS ORDERED: HEPARIN DRIP/D5W 100UNITS/ML 250 ML IV SCH ×2 (10:00→12:45)
[2019-12-14] MEDS: methylPREDNISolone SOD SUCC 40 MG/ML VL IV SCH ×2 (10:24→23:27)
[2019-12-14] MEDS: cefTRIAXone 1GM/50ML D5W 50 ML IV SCH (10:25)
[2019-12-14] MEDS: FUROSEMIDE 40 MG/4 ML VIAL IV SCH ×2 (11:55→23:27)
[2019-12-14] MEDS ORDERED: metOLazone 5 MG TAB PO ONE (12:45)
[2019-12-14] MEDS: HYDROcodone-ACET 5/325MG TAB PO PRN ×2 (12:49→21:00)
[2019-12-14] MEDS: ALBUTEROL SULF 2.5 MG/0.5ML(0.5%) NEB SOLN NEB PRN (14:24)
[2019-12-14 14:33] LABS: INR 1.16 (0.9-1.15); Partial Thromboplastin Time 57.5 sec (23.64-32.05)
[2019-12-14] MEDS ORDERED: IPRATROPIUM BROM 0.5 MG/2.5ML INH SOL NEB PRN (17:15)
[2019-12-14] MEDS ORDERED: ALBUTEROL SULF 2.5 MG/0.5ML(0.5%) NEB SOLN NEB PRN (17:15)
[2019-12-14 23:03] LABS: INR 1.12 (0.9-1.15); Partial Thromboplastin Time 58.6 sec (23.64-32.05)
[2019-12-15] MEDS: ONDANSETRON HCL 4 MG/2 ML VIAL IV PRN (04:50)
[2019-12-15] MEDS: MORPHINE SULF INJ 2 MG/ML SYRINGE 1ML IV PRN (04:50)
--- NOTE | 2019-12-15 07:00 | NUR ---
Respiratory note: PT RESTING COMFORTABLY. NO RESPIRATORY DISTRESS NOTED. SPO2 96% ON 6L OXYMIZER, HR 75, RR 18, BS CLEAR/DIMINISHED BILATERALLY. PRN MEDNEB TX NOT INDICATED. PT INFORMED TO CALL RN IF INCREASED WOB, SOB, OR WHEEZING OCCURS.
[2019-12-15 09:05] LABS: Basophils # (auto) 0 10 ^3/uL (0-0.2); Basophils % (auto) 0.4 % (0.0-2.0); Eosinophils # (auto) 0 10 ^3/uL (0-0.8); Eosinophils % (auto) 0.1 % (0.0-7.0); Hematocrit 37.4 % (36.0-46.0); Hemoglobin 12.1 g/dL (12.2-16.2); Lymphocytes # (auto) 0.5 10 ^3/uL (0.4-5.4); Lymphocytes % (auto) 5.2 % (10.0-50.0); Mean Corpuscular Hemoglobin 29.8 pg (28.0-32.0); Mean Corpuscular Hgb Conc. 32.4 g/dL (32.0-36.0); Mean Corpuscular Volume 92.1 fL (80.0-100.0); Monocytes # (auto) 0.5 10 ^3/uL (0-1.3); Monocytes % (auto) 5.2 % (0.0-12.0); Neutrophils # (auto) 8.8 10 ^3/uL (1.6-8.6); Neutrophils % (auto) 89.1 % (37.0-80.0); Nucleated Red Blood Cells % 0.2 %; Platelet Count (auto) 143 10^3/uL (140-450); Red Blood Cells 4.06 10^6/uL (4.0-5.20); Red Cell Distribution Width 16.3 % (11.8-14.3); White Blood Cell 9.8 10^3/uL (4.4-10.8)
[2019-12-15 09:26] LABS: BUN/Creatinine Ratio 38.1; Calcium 9.5 mg/dL (8.5-10.1); Potassium 4.2 mmol/L (3.5-5.1)
[2019-12-15] MEDS: cefTRIAXone 1GM/50ML D5W 50 ML IV SCH (10:21)
[2019-12-15] MEDS ORDERED: LIDOCAINE 2%HCL (LOCAL ANESTH.) INJ 20ML MDV ONE (10:23)
[2019-12-15] MEDS ORDERED: IODIXANOL 320MG/ML 100ML BTL IV ONE ×2 (10:23→13:00)
[2019-12-15] MEDS: methylPREDNISolone SOD SUCC 40 MG/ML VL IV SCH (10:25)
[2019-12-15] MEDS: FUROSEMIDE 40 MG/4 ML VIAL IV SCH (11:33)
[2019-12-15] MEDS ORDERED: SODIUM CHL 0.9% 0 ML ONE (12:20)
[2019-12-15] MEDS ORDERED: fentaNYL CITRATE 100 MCG/2 ML VL ONE (12:20)
[2019-12-15] MEDS ORDERED: ANGIOMAX 250 MG VIAL IV ONE (12:20)
[2019-12-15] MEDS ORDERED: MIDAZOLAM HCL 1MG/1ML-2 ML VIAL ONE (12:20)
[2019-12-15] MEDS ORDERED: HEPARIN SODIUM (PORCINE) 5000 UNITS/ML 1ML VIAL ONE (12:20)
[2019-12-15] MEDS ORDERED: VERAPAMIL 2.5MG/ML INJ 2ML VIAL IV ONE (12:20)
--- NOTE | 2019-12-15 16:10 | NUR ---
Report received from Shelby LEUNG. EDUARDO MERCEDES brought to bed 218B following Left Cardiac catheterization, on manager cardiac cath and portable oxygen. Patient transfered to unit bed, connected to personnel monitor #[id number] and oxygen. Catheterization site assessed for any bleeding, redness or swelling. vasc band device in place. Pedal pulses on affected leg assessed for positive tissue perfusion. Patient instructed on need to notify staff immediately if any pain, burning or wetness to site, and any lower back pain. Patient educated on new cardiac medications. All questions and concerns addressed, patient verbalized understanding of all education and instruction. See notes for any further.
[2019-12-15 16:31] VITALS: BP 115/70
[2019-12-15 16:35] VITALS: BP 115/70
--- NOTE | 2019-12-15 17:05 | NUR ---
Vasc Band Vasc Band on left on left radial removed, no bleeding, swelling, and or pain noted. pulses present. Covered with Tegaderm. Will continue to monitor.
[2019-12-15 18:09] VITALS: BP 115/70
--- NOTE | 2019-12-15 18:40 | NUR ---
[place] catheter dc'd Order to discontinue Monae catheter. Monae dc'd with clean technique following deflation of balloon. Patient tolerated well with no complaints of pain. Will Continue care.
--- NOTE | 2019-12-15 19:05 | NUR ---
Called Next of Kin. Shirley (daughter ) at [phone]. no answer, left message with call back number.
--- NOTE | 2019-12-15 19:11 | NUR ---
care endorse to XOCHITL Drew.
--- NOTE | 2019-12-15 19:15 | NUR ---
Opening Shift Note Assumed care of patient, awake and alert. No S/S of distress/SOB or pain. Patient on 2L NC and tolerating well. Instructed on POC and to call for assist PRN, will continue to monitor for changes Q1hr and PRN. Safety precautions maintained bed is in lowest position and locked, bed rails 2x. Call light and bedside table are within reach. At this time patient awaiting discharge.
--- NOTE | 2019-12-15 19:20 | NUR ---
Patient voided after Monae DC'd. At this time patient has no s/s of distress or SOB. Will continue to monitor Q1 and PRN.
--- NOTE | 2019-12-15 20:30 | NUR ---
Patient awaiting ride for Discharge IV DC'd with sterile technique, catheter fully intact. Pressure dressing applied to site. Patient tolerated procedure well. personnel monitor sent to ICU. Aftercare instructions per MD given. Patient verbalized understanding. All questions and concerns answered. Will continue to monitor patient Q1 and PRN. At this time patient has no s/s of distress or SOB.
--- NOTE | 2019-12-15 21:10 | NUR ---
Patient Discharged At this time patient has no s/s of distress or SOB. Discharged with aftercare instructions per MD. Patient picked up by family members via motor vehicle. All questions and concerns addressed.
== END 2019-12-15 21:10 | disposition home or self-care (01) | DRG 280 ==
LOC: EDBD 02:55 → ER 02:55 → TELE 02:56 → TELE-CENTR 12-15 16:15
PROVIDERS: ADMIT Hospitalist; ATTEND Hospitalist
PROC: 5A09357 Assistance with Respiratory Ventilation, Less than 24 Consecutive Hours, Continuous Positive Airway Pressure (ICD-10-PCS; 2019-12-13)
PROC: B211YZZ Fluoroscopy of Multiple Coronary Arteries using Other Contrast (ICD-10-PCS; principal; 2019-12-15)
DX: I11.0 Hypertensive heart disease with heart failure (principal); I21.4 Non-ST elevation (NSTEMI) myocardial infarction; G93.41 Metabolic encephalopathy; J96.21 Acute and chronic respiratory failure with hypoxia; E87.2 Acidosis; I50.43 Acute on chronic combined systolic (congestive) and diastolic (congestive) heart failure; E87.5 Hyperkalemia; N28.9 Disorder of kidney and ureter, unspecified; K72.90 Hepatic failure, unspecified without coma; J44.9 Chronic obstructive pulmonary disease, unspecified; I25.10 Atherosclerotic heart disease of native coronary artery without angina pectoris; Z99.81 Dependence on supplemental oxygen; I27.20 Pulmonary hypertension, unspecified; E11.9 Type 2 diabetes mellitus without complications; I50.82 Biventricular heart failure; Z20.828 Contact with and (suspected) exposure to other viral communicable diseases; Z82.49 Family history of ischemic heart disease and other diseases of the circulatory system; Z83.3 Family history of diabetes mellitus; Z86.74 Personal history of sudden cardiac arrest; F32.9 Major depressive disorder, single episode, unspecified
CPT/HCPCS: 36415; 36600; 70450; 71045; 80048; 80053; 80307; 80320; 81001; 82805; 83036; 83605; 83735; 83880; 84484; 85007; 85025; 85027; 85379; 85610; 85730; 86850; 86900; 86901; 87040; 87070; 87081; 87804; 87880; 93005; 93454; 94640; 94660; 96365; 96367; 99152; 99153; G0378; J0696; J2250; J2405; Q9967

== ENCOUNTER 2019-12-16 01:05 | Emergency (ER) | payer OTHER, MEDICAID ==
[~2019-12-16] VITALS: Ht 167.6 cm; Wt 59.9 kg
[~2019-12-16 01:05] MED LIST changes: +ALBU0.084 NEB; +BENZ100C97 PO; +BUDE1AER4 IN; +CARV3.1240 PO; +FURO40TA4 PO; +GABA300C10 PO; -METF-370 PO; +POTA10TA32 PO
[2019-12-16 02:29] LABS: Basophils # (auto) 0 10 ^3/uL (0-0.2); Basophils % (auto) 0.1 % (0.0-2.0); Eosinophils # (auto) 0 10 ^3/uL (0-0.8); Eosinophils % (auto) 0.1 % (0.0-7.0); Hematocrit 40.9 % (36.0-46.0); Hemoglobin 13.2 g/dL (12.2-16.2); Lymphocytes # (auto) 0.5 10 ^3/uL (0.4-5.4); Lymphocytes % (auto) 4.6 % (10.0-50.0); Mean Corpuscular Hemoglobin 29.7 pg (28.0-32.0); Mean Corpuscular Hgb Conc. 32.2 g/dL (32.0-36.0); Monocytes % (auto) 8.9 % (0.0-12.0); Neutrophils % (auto) 86.3 % (37.0-80.0); Nucleated Red Blood Cells % 0.1 %; Platelet Count (auto) 181 10^3/uL (140-450); Red Blood Cells 4.44 10^6/uL (4.0-5.20); Red Cell Distribution Width 16.4 % (11.8-14.3); White Blood Cell 11.6 10^3/uL (4.4-10.8)
[2019-12-16 02:47] LABS: Albumin 3.3 g/dL (3.4-5.0); BUN/Creatinine Ratio 30.3; Calcium 9.4 mg/dL (8.5-10.1); Magnesium 2.2 mg/dL (1.6-2.6)
[2019-12-16 03:12] LABS: INR 1.05 (0.9-1.15); Partial Thromboplastin Time 25.6 sec (23.64-32.05)
[2019-12-16 04:00] VITALS: BP 112/59
== END 2019-12-16 03:08 | disposition left against medical advice (07) ==
LOC: EDBD 01:05 → ER 01:11
DX: I11.0 Hypertensive heart disease with heart failure (principal); I50.9 Heart failure, unspecified; J44.9 Chronic obstructive pulmonary disease, unspecified; E11.9 Type 2 diabetes mellitus without complications; E78.5 Hyperlipidemia, unspecified; R79.89 Other specified abnormal findings of blood chemistry
CPT/HCPCS: 36415; 71045; 80053; 83735; 83880; 84443; 84484; 85025; 85379; 85610; 85730; 93005

== ENCOUNTER 2019-12-17 08:14 | Inpatient (IN) | payer OTHER, MEDICAID ==
[~2019-12-17] VITALS: Ht 162.6 cm; Wt 61.0 kg
[2019-12-17] MEDS ORDERED: FUROSEMIDE 40 MG/4 ML VIAL IV ONE (08:45)
[2019-12-17] MEDS ORDERED: ASPirin 81 mg TAB PO ONE (08:45)
[2019-12-17] MEDS ORDERED: NOREPINEPHRINE 8 MG/250ML KIT 250 ML IV ONE (09:15)
[2019-12-17] MEDS: NOREPINEPHRINE 8 MG/250ML KIT 250 ML IV SCH (09:20)
[2019-12-17 09:58] LABS: Albumin 3.3 g/dL (3.4-5.0); Calcium 9.4 mg/dL (8.5-10.1); Potassium 3.6 mmol/L (3.5-5.1)
[2019-12-17 10:04] LABS: BUN/Creatinine Ratio 36.9; Bilirubin, Total 1.4 mg/dL (0.2-1.0); Total Protein 6.7 g/dL (6.4-8.2)
[2019-12-17 10:07] LABS: Basophils # (auto) 0 10 ^3/uL (0-0.2); Basophils % (auto) 0.6 % (0.0-2.0); Eosinophils # (auto) 0.1 10 ^3/uL (0-0.8); Eosinophils % (auto) 1.6 % (0.0-7.0); Hematocrit 38.1 % (36.0-46.0); Hemoglobin 12.5 g/dL (12.2-16.2); Lymphocytes # (auto) 0.8 10 ^3/uL (0.4-5.4); Lymphocytes % (auto) 10.4 % (10.0-50.0); Mean Corpuscular Hemoglobin 30.1 pg (28.0-32.0); Mean Corpuscular Hgb Conc. 32.9 g/dL (32.0-36.0); Mean Corpuscular Volume 91.5 fL (80.0-100.0); Monocytes # (auto) 0.9 10 ^3/uL (0-1.3); Monocytes % (auto) 12.1 % (0.0-12.0); Neutrophils # (auto) 5.8 10 ^3/uL (1.6-8.6); Neutrophils % (auto) 75.3 % (37.0-80.0); Platelet Count (auto) 171 10^3/uL (140-450); Red Blood Cells 4.16 10^6/uL (4.0-5.20); Red Cell Distribution Width 15.9 % (11.8-14.3); White Blood Cell 7.7 10^3/uL (4.4-10.8)
[2019-12-17 10:10] LABS: INR 1.07 (0.9-1.15); Partial Thromboplastin Time 26.7 sec (23.64-32.05)
[2019-12-17] MEDS ORDERED: ENOXAPARIN SOD 60 MG/0.6 ML SYRINGE SC ONE (10:15)
[2019-12-17 11:06] LABS: Urine Bacteria NONE SEEN /hpf (None Seen); Urine Blood Negative /uL (Negative); Urine Hyaline Cast MOD /lpf (0 - 2); Urine Specific Gravity 1.012 (1.001-1.035); Urine WBC 1 /hpf (0 - 5)
[2019-12-17] MEDS ORDERED: NITROGLYCERIN 0.4 MG SL TAB SL PRN (16:15)
[2019-12-17] MEDS ORDERED: MORPHINE SULF INJ 2 MG/ML SYRINGE 1ML IV PRN (16:15)
[2019-12-17] MEDS ORDERED: ALBUMIN 25% 100 ML IV ONE (17:45)
[2019-12-17] MEDS ORDERED: SODIUM CHLORIDE 0.9% 1,000 ML IV ONE (17:45)
[2019-12-17] MEDS ORDERED: ALBUTEROL SULFATE 0.083% NEB PRN (18:00)
[2019-12-17] MEDS: FUROSEMIDE 40 MG TAB PO SCH (18:09)
[2019-12-17] MEDS: D5W/SOD CHL 0.45% 1,000 ML IV SCH (20:52)
[2019-12-17] MEDS: FORMOTEROL FUM IN SCH (21:56)
[2019-12-17] MEDS: BUDESONIDE IN SCH (21:56)
[2019-12-17] MEDS: MEROPENEM 1GM IVPB 100 ML IV SCH (22:13)
[2019-12-17] MEDS: ENOXAPARIN SOD 60 MG/0.6 ML SYRINGE SC SCH (22:13)
[2019-12-17] MEDS: GABAPENTIN 300 MG CAP PO SCH (22:13)
[2019-12-17] MEDS: CARVEDILOL 3.125 MG TAB PO SCH (22:17)
[2019-12-18] MEDS: MEROPENEM 1GM IVPB 100 ML IV SCH ×2 (05:48→22:37)
[2019-12-18] MEDS: FUROSEMIDE 40 MG TAB PO SCH ×2 (05:48→18:17)
[2019-12-18] MEDS: GABAPENTIN 300 MG CAP PO SCH ×3 (05:48→22:39)
[2019-12-18 09:45] VITALS: BP 133/62
[2019-12-18] MEDS: CARVEDILOL 3.125 MG TAB PO SCH ×2 (10:00→22:38)
[2019-12-18] MEDS: ASPirin 81 mg TAB PO SCH (10:20)
[2019-12-18] MEDS: POTASSIUM CHL 10 Meq TABLET PO SCH (10:21)
[2019-12-18] MEDS: ENOXAPARIN SOD 60 MG/0.6 ML SYRINGE SC SCH (10:22)
[2019-12-18] MEDS: NOREPINEPHRINE 8 MG/250ML KIT 250 ML IV SCH (11:06)
[2019-12-18] MEDS: D5W/SOD CHL 0.45% 1,000 ML IV SCH ×2 (11:08→20:47)
[2019-12-18] MEDS: FORMOTEROL FUM IN SCH ×2 (11:11→22:00)
[2019-12-18] MEDS: BUDESONIDE IN SCH ×2 (11:11→22:00)
--- NOTE | 2019-12-19 07:03 | NUR ---
Respiratory note: ASSESSED PT FOR PRN MED NEB AT THIS TIME. PT DENIES SOB AT THIS TIME, NO RESP DISTRESS NOTED, NO TX INDICATED. PULSE OX 97% ON 4L NC, HR 81, RR 16, BILATERAL BS DECREASED.
[2019-12-19] MEDS: FUROSEMIDE 40 MG TAB PO SCH ×2 (07:48→17:53)
[2019-12-19] MEDS: GABAPENTIN 300 MG CAP PO SCH ×3 (07:48→23:49)
[2019-12-19] MEDS: NOREPINEPHRINE 8 MG/250ML KIT 250 ML IV SCH (07:49)
[2019-12-19] MEDS: SODIUM CHLORIDE 0.9% 1,000 ML IV SCH ×4 (07:52→23:54)
[2019-12-19 08:21] LABS: Hematocrit 40.9 % (36.0-46.0); Hemoglobin 13.2 g/dL (12.2-16.2); Mean Corpuscular Hemoglobin 29.7 pg (28.0-32.0); Mean Corpuscular Hgb Conc. 32.3 g/dL (32.0-36.0); Mean Corpuscular Volume 92.1 fL (80.0-100.0); Platelet Count (auto) 190 10^3/uL (140-450); Red Blood Cells 4.44 10^6/uL (4.0-5.20); Red Cell Distribution Width 15.6 % (11.8-14.3); White Blood Cell 7.7 10^3/uL (4.4-10.8)
[2019-12-19 08:23] LABS: Basophils % (manual) 0 (0.0-2.0); Blast Cells 0; Metamyelocytes % 0; Myelocytes % 0; Promyelocytes % 0; Reactive Lymphocytes 0
[2019-12-19 08:36] LABS: BUN/Creatinine Ratio 28.9; Calcium 9.8 mg/dL (8.5-10.1); Potassium 3.7 mmol/L (3.5-5.1)
[2019-12-19 09:42] LABS: Band Neutrophils % (manual) 1; Eosinophils % (manual) 2 (0-7); Lymphocytes % (manual) 24 (10.0-50.0); Monocytes % (manual) 13 (0-12)
[2019-12-19] MEDS: FORMOTEROL FUM IN SCH ×2 (10:00→22:00)
[2019-12-19] MEDS: BUDESONIDE IN SCH ×2 (10:00→22:00)
[2019-12-19] MEDS: MEROPENEM 1GM IVPB 100 ML IV SCH (11:21)
[2019-12-19] MEDS: ASPirin 81 mg TAB PO SCH (11:21)
[2019-12-19] MEDS: CARVEDILOL 3.125 MG TAB PO SCH (11:21)
[2019-12-19] MEDS: POTASSIUM CHL 10 Meq TABLET PO SCH (11:22)
--- NOTE | 2019-12-19 19:17 | NUR ---
Respiratory note: ASSESSMENT FOR PRN MED NEB TX. PT PRESENTING NO RESPIRATORY DISTRESS AT THIS TIME. HR 81, SPO2 100% ON 4L NC, RR 17, BS DIMINISHED. PT STATES SHE WEARS 2L NC HOME O2. PT INFORMED SHE WOULD BE TITRATED TO 3L ON NC, PT AGREED. SPO2 NOTED AT 98%, WILL CONTINUE TO TITRATE TOLERATED. PT MADE AWARE OF PRN MED NEB TXS, STATES SHE FEELS FINE AT THIS TIME. PT NOTIFIED TO HAVE RT PAGED IF NEEDED, MED NEB TX NOT INDICATED AT THIS TIME. WILL CONTINUE TO MONITOR.
--- NOTE | 2019-12-19 21:08 | NUR ---
Telemetry admit from ER EDUARDO MERCEDES admitted to Telemetry unit after SBAR received. Patient oriented to Courtney Romero, primary RN, unit, room, bed, and unit policies regarding patient care and visiting hours. Patient now on continuous telemetry monitoring, tele box # 25 and telemetry reading on arrival to unit is Sinus tachycardia 115. Patient placed on bedside oxygen, weighed by bedscale and encouraged to call if they need something. All questions and concerns addressed, patient verbalized understanding. Note:
[2019-12-19 21:30] VITALS: BP 95/47
[2019-12-19 22:00] VITALS: BP 95/47
[2019-12-20] MEDS: MEROPENEM 1GM IVPB 100 ML IV SCH ×2 (00:22→11:55)
[2019-12-20] MEDS ORDERED: ASPirin-EC 81 mg tab PO ONE (01:15)
[2019-12-20] MEDS: SODIUM CHLORIDE 0.9% 1,000 ML IV SCH ×2 (04:22→09:43)
[2019-12-20 05:00] VITALS: BP 85/53
[2019-12-20] MEDS: FUROSEMIDE 40 MG TAB PO SCH (06:37)
[2019-12-20] MEDS: GABAPENTIN 300 MG CAP PO SCH ×2 (06:38→13:28)
--- NOTE | 2019-12-20 08:00 | NUR ---
Opening Shift Note Assumed care of patient, awake, alert and oriented X4. No S/S of distress/SOB or pain. O2 @ 3 LPM via nasal cannula with sats @ 94%. Tele# 25, sinus rhythm @ 97 bpm. IV X2, 20 gauge to left wrist, saline locked and right wrist, 20 gauge, patent and infusing 0.+% NS @ 200 ml/hr. Urethral Monae catheter draining clear, yellow urine to gravity. Instructed on POC and to call for assist PRN, verbalized understanding. Bed locked, in lowest position, call light within reach, will continue to monitor for changes Q1hr and PRN.
--- NOTE | 2019-12-20 08:58 | NUR ---
Respiratory note: ASSESSMENT FOR PRN MED NEB TX. PT PRESENTING NO RESPIRATORY DISTRESS AT THIS TIME. HR 100, SPO2 100% ON 2L NC, RR 17, BS DIMINISHED. PT STATES SHE WEARS 2L NC HOME O2. PT NOTIFIED TO HAVE RT PAGED IF NEEDED, MED NEB TX NOT INDICATED AT THIS TIME. WILL CONTINUE TO MONITOR.
[2019-12-20 09:00] VITALS: BP 101/56
[2019-12-20] MEDS: FORMOTEROL FUM IN SCH (10:00)
[2019-12-20] MEDS: BUDESONIDE IN SCH (10:00)
[2019-12-20] MEDS: POTASSIUM CHL 10 Meq TABLET PO SCH (11:55)
[2019-12-20] MEDS: ASPirin 81 mg TAB PO SCH (11:55)
[2019-12-20 13:00] VITALS: BP 96/55
--- NOTE | 2019-12-20 14:00 | NUR ---
PT WILL BE DISCHARGED HOME ON HOSPICE TODAY. NO P.T. GIVEN
[2019-12-20 14:17] VITALS: BP 96/55
[2019-12-20 16:58] VITALS: BP 94/51
--- NOTE | 2019-12-20 17:19 | NUR ---
Discharge instructions given as ordered. Hospice to assume care. All questions and concerns addressed. Patient verbalized understanding. Medication reconciliation form completed and copy given to patient. IV X2 removed with catheter intact, pressure dressing applied, Monae catheter removed. Telemetry unit returned to ICU. Patient awaiting transportation.
--- NOTE | 2019-12-20 18:28 | NUR ---
Patient taken via wheelchair with all personal belongings and oaccompanied by staff and family member. No distress noted at time of departure.
== END 2019-12-20 18:50 | disposition hospice, home (50) | DRG 280 ==
LOC: ER 08:14 → TELE 08:15 → TELE-CENTR 12-19 21:21
PROVIDERS: ADMIT Specialist; ATTEND Specialist
DX: I21.4 Non-ST elevation (NSTEMI) myocardial infarction (principal); I50.43 Acute on chronic combined systolic (congestive) and diastolic (congestive) heart failure; J96.11 Chronic respiratory failure with hypoxia; I42.9 Cardiomyopathy, unspecified; E11.9 Type 2 diabetes mellitus without complications; Z74.01 Bed confinement status; R62.7 Adult failure to thrive; I27.20 Pulmonary hypertension, unspecified; I50.82 Biventricular heart failure; E78.5 Hyperlipidemia, unspecified; I11.0 Hypertensive heart disease with heart failure; I25.10 Atherosclerotic heart disease of native coronary artery without angina pectoris; Z79.899 Other long term (current) drug therapy; Z82.49 Family history of ischemic heart disease and other diseases of the circulatory system; Z83.3 Family history of diabetes mellitus; Z99.81 Dependence on supplemental oxygen; J44.9 Chronic obstructive pulmonary disease, unspecified
CPT/HCPCS: 36415; 51702; 71045; 80048; 80053; 81001; 82565; 83880; 84443; 84484; 85007; 85025; 85027; 85610; 85730; 87040; 87081; 93005; 93970; 96365; 96372; 97163; 99291; G0378; J2185; J7042; P9047